=== PATIENT | female | born 1980 | race African-American/Black ===

== ENCOUNTER 2017-01-30 00:22 | Emergency (ER) | payer MEDICAID, OTHER ==
[~2017-01-30] VITALS: Ht 167.6 cm; Wt 75.0 kg
[2017-01-30 00:24] VITALS: BP 141/80; PULSE 102; RESP 16; TEMP 98.6; O2SAT 99
[2017-01-30 00:28] VITALS: PULSE 98; RESP 18; O2SAT 100
[2017-01-30] MEDS ORDERED: IBUPROFEN 800 MG TAB PO ONE (00:45)
[2017-01-30] MEDS ORDERED: IPRA0.06 EACH NARE (00:49)
[2017-01-30] MEDS ORDERED: IBUP800T23 PO (00:49)
--- NOTE | 2017-01-30 00:49 | PD ---
HPI Chief Complaint: Cold / Flu Symptoms Time Seen by Provider: 00:46 Travel History International Travel<30 days: No Contact w/Intl Traveler<30days: No Traveled to known affect area: No History of Present Illness HPI Patient is a 36-year-old female presented to the emergency for evaluation of nasal congestion, chills, hot flashes. Patient states her symptoms started yesterday, she took Amie-[place] cold this afternoon which improved her symptoms. She denies any documented fevers. She denies any cough, shortness of breath, headache. She does state hard to breathe through her nose. Denies any pain. PFSH Past Medical History Medical History: Denies Significant Hx Diminished Hearing: No Immunizations Current: Yes ?: Not Tubal Ligation: Yes Past Surgical History Section: Yes Social History Alcohol Use: No Tobacco Use: No Substance Use: No Allergies-Medications (Allergen,Severity, Reaction): Coded Allergies: No Known Allergies (Unverified , 01/30/17) Reported Meds & Prescriptions Reported Meds & Active Scripts Active Ipratropium Nasal 0.06% [place] 1 [place] EACH NARE TID Ibuprofen 800 Mg Tab 800 Mg PO Q6HR PRN Review of Systems Except as stated in HPI: all other systems reviewed are Neg General / Constitutional: Positive: Chills HENT: Positive: Rhinitis, Congestion, No: Headaches, Sore Throat, Neck Pain, Earache Cardiovascular: No: Chest Pain or Discomfort Respiratory: No: Cough, Shortness of Breath Gastrointestinal: No: Nausea, Abdominal Pain Musculoskeletal: Positive: Myalgias Physical Exam Narrative GENERAL: Well-developed, well-nourished, alert female. Resting comfortably in no acute distress. SKIN: Warm and dry. HEAD: Atraumatic. Normocephalic. EYES: Pupils equal and round. No scleral icterus. No injection or drainage. ENT: No nasal bleeding or discharge. Mucous membranes pink and moist. No tonsillar hypertrophy, exudate noted. Cobblestone appearance to posterior pharynx. NECK: Trachea midline. No JVD. CARDIOVASCULAR: Regular rate and rhythm. RESPIRATORY: No accessory muscle use. Clear to auscultation. Breath sounds equal bilaterally. GASTROINTESTINAL: Abdomen soft, non-tender, nondistended. Hepatic and splenic margins not palpable. MUSCULOSKELETAL: Extremities without clubbing, cyanosis, or edema. No obvious deformities. NEUROLOGICAL: Awake and alert. No obvious cranial nerve deficits. Motor grossly within normal limits. Five out of 5 muscle strength in the arms and legs. Normal speech. PSYCHIATRIC: Appropriate mood and affect; insight and judgment normal. Data Data Last Documented VS Vital Signs Date Time Temp Pulse Resp B/P (MAP) Pulse Ox O2 Delivery O2 Flow Rate FiO2 01/30/17 00:28 98 18 100 01/30/17 00:24 98.6 141/80 (100) Room Air Orders Orders Ibuprofen (Motrin) (01/30/17 00:45) Ed Discharge Order (01/30/17 00:46) MDM Medical Decision Making Medical Screen Exam Complete: Yes Emergency Medical Condition: Yes Interpretation(s) Vital Signs Date Time Temp Pulse Resp B/P (MAP) Pulse Ox O2 Delivery O2 Flow Rate FiO2 01/30/17 00:28 98 18 100 01/30/17 00:24 98.6 102 16 141/80 (100) 99 Room Air Differential Diagnosis Viral URI versus bronchitis versus pharyngitis versus other Narrative Course Patient presented for evaluation of 2 days of cold symptoms. She is afebrile and has not taken any almf-qxn-tlsfpws medications since 4 PM yesterday afternoon. Physical examination appears consistent with a viral syndrome. She is encouraged to maintain symptom management. She is encouraged to ibuprofen as needed and as directed for body aches, fevers. She was advised to obtain [id number] Sudafed or similar age and use as directed. She will be given a prescription for ipratropium nasal spray. Patient has a primary doctor, she was advised to follow-up in the next 3-4 days if she is not feeling better. Additionally she can return to emergency department for any new or worsening symptoms. Patient verbalized understanding of instructions. Patient is stable for discharge. Diagnosis Primary Impression: Viral URI Referrals: Primary Care Physician 3 days Patient Instructions: General Instructions, Upper Respiratory Infection (ED) Additional Instructions: Take ibuprofen as needed and as directed for fevers, body aches and pain Use nasal spray as directed for nasal congestion Use nasal saline wash as directed available [id number] Continue symptom management Follow-up with her primary doctor if you're not feeling better in 2-3 days Return to emergency department for any new or worsening symptoms Med/Other Pt SpecificInfo: Prescription(s) given Scripts Ipratropium Nasal (Ipratropium Nasal) 0.06% [place] 1 SPRAY EACH NARE TID, #1 BOTTLE 0 Refills Prov: Brissa Welsh 01/30/17 Ibuprofen (Ibuprofen) 800 Mg Tab 800 MG PO Q6HR Y for PAIN, #40 TAB 0 Refills Prov: Brissa Welsh 01/30/17 Disposition: 01 DISCHARGE HOME Condition: Stable Brissa Welsh Jan 30, 2017 00:49
--- NOTE | 2017-01-30 00:49 | PD ---
HPI Chief Complaint: Cold / Flu Symptoms Time Seen by Provider: 00:46 Travel History International Travel<30 days: No Contact w/Intl Traveler<30days: No Traveled to known affect area: No History of Present Illness HPI Patient is a 36-year-old female presented to the emergency for evaluation of nasal congestion, chills, hot flashes. Patient states her symptoms started yesterday, she took Amie-[place] cold this afternoon which improved her symptoms. She denies any documented fevers. She denies any cough, shortness of breath, headache. She does state hard to breathe through her nose. Denies any pain. PFSH Past Medical History Medical History: Denies Significant Hx Diminished Hearing: No Immunizations Current: Yes ?: Not Tubal Ligation: Yes Past Surgical History Section: Yes Social History Alcohol Use: No Tobacco Use: No Substance Use: No Allergies-Medications (Allergen,Severity, Reaction): Coded Allergies: No Known Allergies (Unverified , 01/30/17) Reported Meds & Prescriptions Reported Meds & Active Scripts Active Ipratropium Nasal 0.06% [place] 1 [place] EACH NARE TID Ibuprofen 800 Mg Tab 800 Mg PO Q6HR PRN Review of Systems Except as stated in HPI: all other systems reviewed are Neg General / Constitutional: Positive: Chills HENT: Positive: Rhinitis, Congestion, No: Headaches, Sore Throat, Neck Pain, Earache Cardiovascular: No: Chest Pain or Discomfort Respiratory: No: Cough, Shortness of Breath Gastrointestinal: No: Nausea, Abdominal Pain Musculoskeletal: Positive: Myalgias Physical Exam Narrative GENERAL: Well-developed, well-nourished, alert female. Resting comfortably in no acute distress. SKIN: Warm and dry. HEAD: Atraumatic. Normocephalic. EYES: Pupils equal and round. No scleral icterus. No injection or drainage. ENT: No nasal bleeding or discharge. Mucous membranes pink and moist. No tonsillar hypertrophy, exudate noted. Cobblestone appearance to posterior pharynx. NECK: Trachea midline. No JVD. CARDIOVASCULAR: Regular rate and rhythm. RESPIRATORY: No accessory muscle use. Clear to auscultation. Breath sounds equal bilaterally. GASTROINTESTINAL: Abdomen soft, non-tender, nondistended. Hepatic and splenic margins not palpable. MUSCULOSKELETAL: Extremities without clubbing, cyanosis, or edema. No obvious deformities. NEUROLOGICAL: Awake and alert. No obvious cranial nerve deficits. Motor grossly within normal limits. Five out of 5 muscle strength in the arms and legs. Normal speech. PSYCHIATRIC: Appropriate mood and affect; insight and judgment normal. Data Data Last Documented VS Vital Signs Date Time Temp Pulse Resp B/P (MAP) Pulse Ox O2 Delivery O2 Flow Rate FiO2 01/30/17 00:28 98 18 100 01/30/17 00:24 98.6 141/80 (100) Room Air Orders Orders Ibuprofen (Motrin) (01/30/17 00:45) Ed Discharge Order (01/30/17 00:46) MDM Medical Decision Making Medical Screen Exam Complete: Yes Emergency Medical Condition: Yes Interpretation(s) Vital Signs Date Time Temp Pulse Resp B/P (MAP) Pulse Ox O2 Delivery O2 Flow Rate FiO2 01/30/17 00:28 98 18 100 01/30/17 00:24 98.6 102 16 141/80 (100) 99 Room Air Differential Diagnosis Viral URI versus bronchitis versus pharyngitis versus other Narrative Course Patient presented for evaluation of 2 days of cold symptoms. She is afebrile and has not taken any ccnl-dwi-bmibamp medications since 4 PM yesterday afternoon. Physical examination appears consistent with a viral syndrome. She is encouraged to maintain symptom management. She is encouraged to ibuprofen as needed and as directed for body aches, fevers. She was advised to obtain [id number] Sudafed or similar age and use as directed. She will be given a prescription for ipratropium nasal spray. Patient has a primary doctor, she was advised to follow-up in the next 3-4 days if she is not feeling better. Additionally she can return to emergency department for any new or worsening symptoms. Patient verbalized understanding of instructions. Patient is stable for discharge. Diagnosis Primary Impression: Viral URI Referrals: Primary Care Physician 3 days Patient Instructions: General Instructions, Upper Respiratory Infection (ED) Additional Instructions: Take ibuprofen as needed and as directed for fevers, body aches and pain Use nasal spray as directed for nasal congestion Use nasal saline wash as directed available [id number] Continue symptom management Follow-up with her primary doctor if you're not feeling better in 2-3 days Return to emergency department for any new or worsening symptoms Med/Other Pt SpecificInfo: Prescription(s) given Scripts Ipratropium Nasal (Ipratropium Nasal) 0.06% [place] 1 SPRAY EACH NARE TID, #1 BOTTLE 0 Refills Prov: Brissa Welsh 01/30/17 Ibuprofen (Ibuprofen) 800 Mg Tab 800 MG PO Q6HR Y for PAIN, #40 TAB 0 Refills Prov: Brissa Welsh 01/30/17 Disposition: 01 DISCHARGE HOME Condition: Stable Brissa Welsh Jan 30, 2017 00:49
--- NOTE | 2017-01-30 00:49 | PD ---
HPI Chief Complaint: Cold / Flu Symptoms Time Seen by Provider: 00:46 Travel History International Travel<30 days: No Contact w/Intl Traveler<30days: No Traveled to known affect area: No History of Present Illness HPI Patient is a 36-year-old female presented to the emergency for evaluation of nasal congestion, chills, hot flashes. Patient states her symptoms started yesterday, she took Amie-[place] cold this afternoon which improved her symptoms. She denies any documented fevers. She denies any cough, shortness of breath, headache. She does state hard to breathe through her nose. Denies any pain. PFSH Past Medical History Medical History: Denies Significant Hx Diminished Hearing: No Immunizations Current: Yes ?: Not Tubal Ligation: Yes Past Surgical History Section: Yes Social History Alcohol Use: No Tobacco Use: No Substance Use: No Allergies-Medications (Allergen,Severity, Reaction): Coded Allergies: No Known Allergies (Unverified , 01/30/17) Reported Meds & Prescriptions Reported Meds & Active Scripts Active Ipratropium Nasal 0.06% [place] 1 [place] EACH NARE TID Ibuprofen 800 Mg Tab 800 Mg PO Q6HR PRN Review of Systems Except as stated in HPI: all other systems reviewed are Neg General / Constitutional: Positive: Chills HENT: Positive: Rhinitis, Congestion, No: Headaches, Sore Throat, Neck Pain, Earache Cardiovascular: No: Chest Pain or Discomfort Respiratory: No: Cough, Shortness of Breath Gastrointestinal: No: Nausea, Abdominal Pain Musculoskeletal: Positive: Myalgias Physical Exam Narrative GENERAL: Well-developed, well-nourished, alert female. Resting comfortably in no acute distress. SKIN: Warm and dry. HEAD: Atraumatic. Normocephalic. EYES: Pupils equal and round. No scleral icterus. No injection or drainage. ENT: No nasal bleeding or discharge. Mucous membranes pink and moist. No tonsillar hypertrophy, exudate noted. Cobblestone appearance to posterior pharynx. NECK: Trachea midline. No JVD. CARDIOVASCULAR: Regular rate and rhythm. RESPIRATORY: No accessory muscle use. Clear to auscultation. Breath sounds equal bilaterally. GASTROINTESTINAL: Abdomen soft, non-tender, nondistended. Hepatic and splenic margins not palpable. MUSCULOSKELETAL: Extremities without clubbing, cyanosis, or edema. No obvious deformities. NEUROLOGICAL: Awake and alert. No obvious cranial nerve deficits. Motor grossly within normal limits. Five out of 5 muscle strength in the arms and legs. Normal speech. PSYCHIATRIC: Appropriate mood and affect; insight and judgment normal. Data Data Last Documented VS Vital Signs Date Time Temp Pulse Resp B/P (MAP) Pulse Ox O2 Delivery O2 Flow Rate FiO2 01/30/17 00:28 98 18 100 01/30/17 00:24 98.6 141/80 (100) Room Air Orders Orders Ibuprofen (Motrin) (01/30/17 00:45) Ed Discharge Order (01/30/17 00:46) MDM Medical Decision Making Medical Screen Exam Complete: Yes Emergency Medical Condition: Yes Interpretation(s) Vital Signs Date Time Temp Pulse Resp B/P (MAP) Pulse Ox O2 Delivery O2 Flow Rate FiO2 01/30/17 00:28 98 18 100 01/30/17 00:24 98.6 102 16 141/80 (100) 99 Room Air Differential Diagnosis Viral URI versus bronchitis versus pharyngitis versus other Narrative Course Patient presented for evaluation of 2 days of cold symptoms. She is afebrile and has not taken any bawj-wqn-hgenuvd medications since 4 PM yesterday afternoon. Physical examination appears consistent with a viral syndrome. She is encouraged to maintain symptom management. She is encouraged to ibuprofen as needed and as directed for body aches, fevers. She was advised to obtain [id number] Sudafed or similar age and use as directed. She will be given a prescription for ipratropium nasal spray. Patient has a primary doctor, she was advised to follow-up in the next 3-4 days if she is not feeling better. Additionally she can return to emergency department for any new or worsening symptoms. Patient verbalized understanding of instructions. Patient is stable for discharge. Diagnosis Primary Impression: Viral URI Referrals: Primary Care Physician 3 days Patient Instructions: General Instructions, Upper Respiratory Infection (ED) Additional Instructions: Take ibuprofen as needed and as directed for fevers, body aches and pain Use nasal spray as directed for nasal congestion Use nasal saline wash as directed available [id number] Continue symptom management Follow-up with her primary doctor if you're not feeling better in 2-3 days Return to emergency department for any new or worsening symptoms Med/Other Pt SpecificInfo: Prescription(s) given Scripts Ipratropium Nasal (Ipratropium Nasal) 0.06% [place] 1 SPRAY EACH NARE TID, #1 BOTTLE 0 Refills Prov: Brissa Welsh 01/30/17 Ibuprofen (Ibuprofen) 800 Mg Tab 800 MG PO Q6HR Y for PAIN, #40 TAB 0 Refills Prov: Brissa Welsh 01/30/17 Disposition: 01 DISCHARGE HOME Condition: Stable Brissa Welsh Jan 30, 2017 00:49
== END 2017-01-30 01:17 | disposition home or self-care (01) ==
LOC: NEPD 00:22
DX: J06.9 Acute upper respiratory infection, unspecified (principal)
CPT/HCPCS: 99283